=== PATIENT | male | born 1945 | race Caucasian/White ===

== ENCOUNTER 2023-01-01 13:32 | Inpatient (IN) | payer MEDICARE ==
[2023-01-01 16:58] LABS: Glucose,Bedside by Nursing 108 md/dL (70-100)
[2023-01-01 17:11] VITALS: BMI 25.9
[2023-01-01] MEDS ORDERED: Bisacodyl 5 MG TAB PO PRN (17:30)
[2023-01-01] MEDS ORDERED: Zolpidem Tartrate 5 MG TAB PO PRN (17:30)
[2023-01-01] MEDS ORDERED: Ondansetron ODT 4 MG TAB SL PRN (17:30)
[2023-01-01] MEDS ORDERED: Ondansetron PF 4 MG/2 ML Vial SLOW IVP PRN (17:30)
[2023-01-01] MEDS ORDERED: Calcium Carbonate 500 MG ChewTAB PO PRN (17:30)
[2023-01-01] MEDS ORDERED: Senokot S 8.6-50 MG TAB PO PRN (17:30)
[2023-01-01] MEDS ORDERED: Bisacodyl 10 MG SUPP PR PRN (17:30)
[2023-01-01] MEDS ORDERED: Loperamide HCl 2 MG CAP PO PRN ×2 (17:30)
[2023-01-01] MEDS ORDERED: Acetaminophen 325 MG TAB PO PRN (17:30)
[2023-01-01] MEDS ORDERED: Acetaminophen 650 MG Suppository PR PRN (17:30)
[2023-01-01] MEDS: HYDROcodone/Acetaminophen 5/325 mg Tablet PO PRN (20:13)
[2023-01-01] MEDS: Famotidine 20 MG TAB PO SCH (20:14)
[2023-01-01 20:24] LABS: Glucose,Bedside by Nursing 108 md/dL (70-100)
[2023-01-02] MEDS ORDERED: Non-Formulary Item 1 EACH (Atorvastatin Calcium [Atorvastatin Calcium] 80 MG Tablet) PO SCH (09:00)
[2023-01-02] MEDS: metFORMIN 500 MG TAB PO SCH ×2 (09:03→17:14)
[2023-01-02] MEDS: Aspirin 81 mg Enteric Coated Tablet PO SCH (09:03)
[2023-01-02] MEDS: Famotidine 20 MG TAB PO SCH ×2 (09:03→20:16)
[2023-01-02] MEDS: Sertraline 100 MG TAB PO SCH (09:03)
[2023-01-02] MEDS: Lisinopril 5 MG TAB PO SCH (09:04)
[2023-01-02] MEDS: Acetaminophen 325 MG TAB PO PRN (09:05)
[2023-01-02] MEDS: HYDROcodone/Acetaminophen 5/325 mg Tablet PO PRN (22:30)
[2023-01-03] MEDS: HYDROcodone/Acetaminophen 5/325 mg Tablet PO PRN ×3 (04:02→20:23)
[2023-01-03] MEDS: Sertraline 100 MG TAB PO SCH (08:34)
[2023-01-03] MEDS: metFORMIN 500 MG TAB PO SCH ×2 (08:34→15:43)
[2023-01-03] MEDS: Aspirin 81 mg Enteric Coated Tablet PO SCH (08:34)
[2023-01-03] MEDS: Lisinopril 5 MG TAB PO SCH (08:34)
[2023-01-03] MEDS: Famotidine 20 MG TAB PO SCH ×2 (08:34→20:23)
[2023-01-04] MEDS: Sertraline 100 MG TAB PO SCH (09:25)
[2023-01-04] MEDS: Aspirin 81 mg Enteric Coated Tablet PO SCH (09:25)
[2023-01-04] MEDS: Lisinopril 5 MG TAB PO SCH (09:25)
[2023-01-04] MEDS: metFORMIN 500 MG TAB PO SCH ×2 (09:26→17:08)
[2023-01-04] MEDS: Famotidine 20 MG TAB PO SCH ×2 (09:26→21:14)
[2023-01-04] MEDS: HYDROcodone/Acetaminophen 5/325 mg Tablet PO PRN ×2 (15:11→21:14)
[2023-01-05] MEDS: Famotidine 20 MG TAB PO SCH ×2 (09:42→21:04)
[2023-01-05] MEDS: Aspirin 81 mg Enteric Coated Tablet PO SCH (09:44)
[2023-01-05] MEDS: metFORMIN 500 MG TAB PO SCH (09:44)
[2023-01-05] MEDS: Lisinopril 5 MG TAB PO SCH (09:45)
[2023-01-05] MEDS: Sertraline 100 MG TAB PO SCH (09:46)
[2023-01-05] MEDS: Acetaminophen 325 MG TAB PO PRN (09:52)
[2023-01-05] MEDS: HYDROcodone/Acetaminophen 5/325 mg Tablet PO PRN ×2 (14:43→21:03)
[2023-01-05 21:20] LABS: Glucose,Bedside by Nursing 119 md/dL (70-100)
[2023-01-06] MEDS: Lisinopril 5 MG TAB PO SCH (09:28)
[2023-01-06] MEDS: Famotidine 20 MG TAB PO SCH ×2 (09:29→20:26)
[2023-01-06] MEDS: Sertraline 100 MG TAB PO SCH (09:29)
[2023-01-06] MEDS: Aspirin 81 mg Enteric Coated Tablet PO SCH (09:31)
[2023-01-06] MEDS: metFORMIN 500 MG TAB PO SCH ×2 (09:31→16:33)
[2023-01-06] MEDS: Acetaminophen 325 MG TAB PO PRN (17:27)
[2023-01-06] MEDS: HYDROcodone/Acetaminophen 5/325 mg Tablet PO PRN (20:26)
[2023-01-07] MEDS: metFORMIN 500 MG TAB PO SCH ×2 (08:05→16:26)
[2023-01-07] MEDS: Aspirin 81 mg Enteric Coated Tablet PO SCH (08:05)
[2023-01-07] MEDS: Sertraline 100 MG TAB PO SCH (08:05)
[2023-01-07] MEDS: Acetaminophen 325 MG TAB PO PRN (08:06)
[2023-01-07] MEDS: Famotidine 20 MG TAB PO SCH ×2 (08:06→21:02)
[2023-01-07] MEDS: Lisinopril 5 MG TAB PO SCH (08:06)
[2023-01-07] MEDS: HYDROcodone/Acetaminophen 5/325 mg Tablet PO PRN ×3 (16:25→21:03)
[2023-01-08] MEDS: HYDROcodone/Acetaminophen 5/325 mg Tablet PO PRN ×3 (01:01→23:15)
[2023-01-08] MEDS: Lisinopril 5 MG TAB PO SCH (08:57)
[2023-01-08] MEDS: Aspirin 81 mg Enteric Coated Tablet PO SCH (08:57)
[2023-01-08] MEDS: metFORMIN 500 MG TAB PO SCH ×2 (08:57→17:09)
[2023-01-08] MEDS: Sertraline 100 MG TAB PO SCH (08:57)
[2023-01-08] MEDS: Famotidine 20 MG TAB PO SCH ×2 (08:57→20:53)
[2023-01-08] MEDS: Atorvastatin Calcium 40 MG TAB PO SCH (20:53)
[2023-01-09] MEDS: Sertraline 100 MG TAB PO SCH (08:48)
[2023-01-09] MEDS: metFORMIN 500 MG TAB PO SCH ×2 (08:48→17:13)
[2023-01-09] MEDS: Famotidine 20 MG TAB PO SCH ×2 (08:49→20:23)
[2023-01-09] MEDS: Aspirin 81 mg Enteric Coated Tablet PO SCH (08:49)
[2023-01-09] MEDS: Lisinopril 5 MG TAB PO SCH (08:49)
[2023-01-09] MEDS: HYDROcodone/Acetaminophen 5/325 mg Tablet PO PRN (09:15)
[2023-01-09] MEDS: Atorvastatin Calcium 40 MG TAB PO SCH (20:23)
[2023-01-10] MEDS: HYDROcodone/Acetaminophen 5/325 mg Tablet PO PRN ×2 (00:37→20:15)
[2023-01-10] MEDS: Lisinopril 5 MG TAB PO SCH (09:01)
[2023-01-10] MEDS: metFORMIN 500 MG TAB PO SCH ×2 (09:01→17:39)
[2023-01-10] MEDS: Famotidine 20 MG TAB PO SCH ×2 (09:01→20:12)
[2023-01-10] MEDS: Sertraline 100 MG TAB PO SCH (09:02)
[2023-01-10] MEDS: Aspirin 81 mg Enteric Coated Tablet PO SCH (09:02)
[2023-01-10] MEDS: Atorvastatin Calcium 40 MG TAB PO SCH (20:12)
[2023-01-11] MEDS: Lisinopril 5 MG TAB PO SCH (08:31)
[2023-01-11] MEDS: metFORMIN 500 MG TAB PO SCH ×2 (08:31→17:36)
[2023-01-11] MEDS: Sertraline 100 MG TAB PO SCH (08:32)
[2023-01-11] MEDS: Aspirin 81 mg Enteric Coated Tablet PO SCH (08:34)
[2023-01-11] MEDS: Famotidine 20 MG TAB PO SCH ×2 (08:34→20:17)
[2023-01-11] MEDS: Acetaminophen 325 MG TAB PO SCH ×3 (08:35→20:18)
[2023-01-11] MEDS: HYDROcodone/Acetaminophen 5/325 mg Tablet PO PRN (12:02)
[2023-01-11] MEDS: Atorvastatin Calcium 40 MG TAB PO SCH (20:17)
[2023-01-12] MEDS: Acetaminophen 325 MG TAB PO SCH ×4 (01:58→21:18)
[2023-01-12] MEDS: Sertraline 100 MG TAB PO SCH (09:35)
[2023-01-12] MEDS: metFORMIN 500 MG TAB PO SCH ×2 (09:36→18:10)
[2023-01-12] MEDS: Aspirin 81 mg Enteric Coated Tablet PO SCH (09:37)
[2023-01-12] MEDS: Famotidine 20 MG TAB PO SCH ×2 (09:37→21:18)
[2023-01-12] MEDS: Lisinopril 5 MG TAB PO SCH (09:37)
[2023-01-12] MEDS: Atorvastatin Calcium 40 MG TAB PO SCH (21:18)
[2023-01-13] MEDS: Acetaminophen 325 MG TAB PO SCH ×3 (03:37→14:00)
[2023-01-13] MEDS: Famotidine 20 MG TAB PO SCH (09:47)
[2023-01-13] MEDS: Lisinopril 5 MG TAB PO SCH (09:47)
[2023-01-13] MEDS: metFORMIN 500 MG TAB PO SCH ×2 (09:47→17:43)
[2023-01-13] MEDS: Aspirin 81 mg Enteric Coated Tablet PO SCH (09:47)
[2023-01-13] MEDS: Sertraline 100 MG TAB PO SCH (09:47)
[2023-01-13] MEDS: Ondansetron ODT 4 MG TAB PO PRN (16:24)
[2023-01-14] MEDS: Acetaminophen 325 MG TAB PO SCH ×5 (00:20→22:21)
[2023-01-14] MEDS: Famotidine 20 MG TAB PO SCH ×3 (00:20→22:31)
[2023-01-14] MEDS: Atorvastatin Calcium 40 MG TAB PO SCH ×2 (00:20→22:31)
[2023-01-14] MEDS: Aspirin 81 mg Enteric Coated Tablet PO SCH (09:23)
[2023-01-14] MEDS: Sertraline 100 MG TAB PO SCH (09:23)
[2023-01-14] MEDS: Lisinopril 5 MG TAB PO SCH (09:24)
[2023-01-14] MEDS: metFORMIN 500 MG TAB PO SCH ×2 (09:25→17:33)
[2023-01-14] MEDS: HYDROcodone/Acetaminophen 5/325 mg Tablet PO PRN ×2 (13:28→20:22)
[2023-01-14] MEDS: Ondansetron ODT 4 MG TAB PO PRN (20:20)
[2023-01-15] MEDS: Acetaminophen 325 MG TAB PO SCH ×4 (04:29→20:11)
[2023-01-15] MEDS: Lisinopril 5 MG TAB PO SCH (08:28)
[2023-01-15] MEDS: Aspirin 81 mg Enteric Coated Tablet PO SCH (08:28)
[2023-01-15] MEDS: Famotidine 20 MG TAB PO SCH ×2 (08:28→20:33)
[2023-01-15] MEDS: Sertraline 100 MG TAB PO SCH (08:29)
[2023-01-15] MEDS: metFORMIN 500 MG TAB PO SCH ×2 (08:30→17:32)
[2023-01-15] MEDS: Ondansetron ODT 4 MG TAB PO PRN (14:10)
[2023-01-15] MEDS: HYDROcodone/Acetaminophen 5/325 mg Tablet PO PRN (19:27)
[2023-01-15] MEDS: Atorvastatin Calcium 40 MG TAB PO SCH (20:33)
[2023-01-16] MEDS: Acetaminophen 325 MG TAB PO SCH ×4 (02:08→20:36)
[2023-01-16] MEDS: metFORMIN 500 MG TAB PO SCH ×2 (10:05→18:58)
[2023-01-16] MEDS: Aspirin 81 mg Enteric Coated Tablet PO SCH (10:06)
[2023-01-16] MEDS: Lisinopril 5 MG TAB PO SCH (10:06)
[2023-01-16] MEDS: Famotidine 20 MG TAB PO SCH ×2 (10:07→20:35)
[2023-01-16] MEDS: Sertraline 100 MG TAB PO SCH (10:07)
[2023-01-16] MEDS: HYDROcodone/Acetaminophen 5/325 mg Tablet PO PRN ×2 (13:58→20:36)
[2023-01-16] MEDS: Atorvastatin Calcium 40 MG TAB PO SCH (20:35)
[2023-01-17] MEDS: Acetaminophen 325 MG TAB PO SCH ×4 (03:07→19:58)
[2023-01-17] MEDS: Lisinopril 5 MG TAB PO SCH (09:12)
[2023-01-17] MEDS: Famotidine 20 MG TAB PO SCH ×2 (09:13→19:56)
[2023-01-17] MEDS: Sertraline 100 MG TAB PO SCH (09:13)
[2023-01-17] MEDS: metFORMIN 500 MG TAB PO SCH ×2 (09:13→16:20)
[2023-01-17] MEDS: Aspirin 81 mg Enteric Coated Tablet PO SCH (09:13)
[2023-01-17] MEDS: Ondansetron ODT 4 MG TAB PO PRN (14:15)
[2023-01-17] MEDS: Atorvastatin Calcium 40 MG TAB PO SCH (19:55)
[2023-01-18] MEDS: Acetaminophen 325 MG TAB PO SCH ×3 (02:10→14:41)
[2023-01-18] MEDS: Aspirin 81 mg Enteric Coated Tablet PO SCH (09:01)
[2023-01-18] MEDS: Famotidine 20 MG TAB PO SCH (09:02)
[2023-01-18] MEDS: Sertraline 100 MG TAB PO SCH (09:02)
[2023-01-18] MEDS: metFORMIN 500 MG TAB PO SCH ×2 (09:02→17:04)
[2023-01-18] MEDS: Lisinopril 5 MG TAB PO SCH (09:03)
[2023-01-18] MEDS: Ondansetron ODT 4 MG TAB PO PRN (12:00)
[2023-01-18 18:44] VITALS: BP 122/80; TEMP 98.8
== END 2023-01-18 18:10 | disposition home health service (06) | DRG 948 ==
LOC: BURMED 15:40
PROVIDERS: ADMIT Family Medicine; ATTEND Nurse Practitioner
DX: R53.1 Weakness (principal); I25.10 Atherosclerotic heart disease of native coronary artery without angina pectoris; F03.90 Unspecified dementia, unspecified severity, without behavioral disturbance, psychotic disturbance, mood disturbance, and anxiety; I10 Essential (primary) hypertension; E11.9 Type 2 diabetes mellitus without complications; E78.5 Hyperlipidemia, unspecified; R13.10 Dysphagia, unspecified; F32.A Depression, unspecified; K21.9 Gastro-esophageal reflux disease without esophagitis; Z96.641 Presence of right artificial hip joint; L89.151 Pressure ulcer of sacral region, stage 1; Z95.1 Presence of aortocoronary bypass graft; Z88.8 Allergy status to other drugs, medicaments and biological substances; Z79.84 Long term (current) use of oral hypoglycemic drugs; Z79.899 Other long term (current) drug therapy; Z79.82 Long term (current) use of aspirin; Z98.1 Arthrodesis status; Z87.891 Personal history of nicotine dependence
CPT/HCPCS: 36416; 72040; Q0162

== ENCOUNTER 2025-01-15 10:33 | Inpatient (IN) | payer MEDICARE ==
[2025-01-15 15:03] VITALS: BMI 23.4
[2025-01-15] MEDS ORDERED: Non-Formulary Item 1 EACH (Ertapenem 1 GM Vial) IV SCH (15:30)
[2025-01-15] MEDS: Gabapentin 300 MG CAP PO SCH (20:23)
[2025-01-15] MEDS: HYDROcodone/Acetaminophen 5/325 mg Tablet PO PRN (20:34)
[2025-01-15] MEDS: Melatonin 3 MG TAB PO PRN (21:43)
[2025-01-16] MEDS: Lisinopril 2.5 MG TAB PO SCH (08:00)
[2025-01-16] MEDS: metFORMIN 500 MG TAB PO SCH (08:00)
[2025-01-16] MEDS: Gabapentin 300 MG CAP PO SCH (08:00)
[2025-01-16] MEDS: Aspirin 81 mg Enteric Coated Tablet PO SCH (08:00)
[2025-01-16] MEDS: Multivitamin W/ Minerals 1 TAB PO SCH (08:00)
[2025-01-16] MEDS: Sertraline 100 MG TAB PO SCH (08:00)
[2025-01-16] MEDS: Allopurinol 100 MG TAB PO SCH (08:00)
[2025-01-16] MEDS: Pantoprazole 40 MG DR.TAB PO SCH (08:00)
[2025-01-16] MEDS: Nystatin Powder 15 GM BOT TOP SCH (20:17)
[2025-01-16 20:33] VITALS: BMI 23.4
[2025-01-18] MEDS: Transdermal Patch Removal TOP SCH (10:30)
[2025-01-18] MEDS: Senokot S 8.6-50 MG TAB PO PRN (20:16)
[2025-01-18] MEDS ORDERED: Transdermal Patch Removal TOP SCH (21:00)
[2025-01-19] MEDS: Acetaminophen 325 MG TAB PO PRN (23:10)
[2025-01-20] MEDS: Colchicine 0.6 MG TAB PO PRN (20:39)
[2025-01-21 05:31] LABS: Hematocrit 35.3 % (42.0-52.0); Hemoglobin 12.1 g/dL (14.0-18.0); MDiff Complete? YES; Mean Corpuscular Hemoglobin 29.3 pg (27.0-31.0); Mean Corpuscular Volume 85.7 fl (78.0-98.0); Platelet Count 303 10x3/uL (130-400); Red Blood Cell (RBC) Count 4.12 mill/uL (4.70-6.10); White Blood Cell (WBC) Count 7.7 10x3/uL (4.8-10.8)
[2025-01-21 05:54] LABS: Anion Gap 16 mmol/L (10-20); BUN (Urea Nitrogen) 28 mg/dL (8.4-25.7); Calc. Creatinine Clearance 69 mL/min (70-130); Calcium 9.5 mg/dL (7.8-10.44); Carbon Dioxide 25 mmol/L (23-31); Chloride 102 mmol/L (98-107); Glucose 103 mg/dL (83-110); Potassium 4.9 mmol/L (3.5-5.1); Sodium 138 mmol/L (136-145)
[2025-01-26] MEDS: Lactulose 20 GM (30 mL) UDCUP PO PRN (16:00)
[2025-01-26] MEDS: Fleet Saline Enema 133 ML BOT PR SCH (23:18)
[2025-01-27] MEDS: Fleet Saline Enema 133 ML BOT PR SCH (17:04)
[2025-01-30 14:01] VITALS: BP 120/75; TEMP 98.2
== END 2025-01-30 13:59 | disposition home or self-care (01) | DRG 945 ==
LOC: BURMED 14:29
PROVIDERS: ADMIT Family Medicine; ATTEND Family Medicine
PROC: F07Z9ZZ Gait Training/Functional Ambulation Treatment (ICD-10-PCS; principal; 2025-01-15)
DX: R53.81 Other malaise (principal); I5A Non-ischemic myocardial injury (non-traumatic); N30.01 Acute cystitis with hematuria; G47.33 Obstructive sleep apnea (adult) (pediatric); R26.89 Other abnormalities of gait and mobility; F41.8 Other specified anxiety disorders; I25.10 Atherosclerotic heart disease of native coronary artery without angina pectoris; I10 Essential (primary) hypertension; Z96.651 Presence of right artificial knee joint; E78.5 Hyperlipidemia, unspecified; E11.9 Type 2 diabetes mellitus without complications; Z88.8 Allergy status to other drugs, medicaments and biological substances; Z88.2 Allergy status to sulfonamides; Z95.1 Presence of aortocoronary bypass graft; Z98.890 Other specified postprocedural states; Z98.84 Bariatric surgery status; Z79.82 Long term (current) use of aspirin; Z79.899 Other long term (current) drug therapy
CPT/HCPCS: 36415; 80048; 85025; J2185; Q0162